=== PATIENT | female | born 1985 | race Caucasian/White ===

== ENCOUNTER 2019-05-15 05:38 | Day surgery (SDC) | payer OTHER ==
[2019-05-09 11:14] VITALS: BMI 36.3
--- NOTE | 2019-05-11 11:30 | HP ---
HISTORY AND PHYSICAL Preoperative history and physical for May 15. CHIEF COMPLAINT: Left ovarian cyst. HPI: This is a pleasant 33-year-old 0 that has known large left ovarian cyst that has been being followed for multiple months. The patient underwent ova 1 testing which was normal in nature in addition. Patient in addition has a 5 cm uterine fibroid. The patient denies pelvic pain at this time. Menstrual cycles are noted to be regular every month with a moderate flow. She denies intermenstrual spotting or dysmenorrhea. She has denied contraceptive need in the past. PAST MEDICAL HISTORY: 1. Significant for fibroid uterus. 2. Ovarian cyst. PAST SURGICAL HISTORY: No surgical history. MEDICATIONS: She is on a supplement called [employer]. ALLERGIES: No known drug allergies. FAMILY MEDICAL HISTORY: Noncontributory. 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 SOCIAL HISTORY: She is a nonsmoker and denies substance abuse. Occasional alcohol use. She is in a monogamous relationship. REVIEW OF SYSTEMS: She denies fevers, chills. She denies nausea, vomiting, diarrhea, constipation. Genitourinary urgency, frequency, dysuria, or urinary incontinence are denied. She denies dyspareunia or vaginal discharge. She denies any breast concerns including lumps, tenderness, swelling, or nipple discharge. PHYSICAL EXAM: VITAL SIGNS: Vital signs noted to be stable. On physical exam, she is a well-nourished, well-developed, alert female in no acute distress. Breathing is noted to be nonlabored. Heart has a regular rate and rhythm. Abdomen is soft, nontender. On genitourinary exam, external genitalia is normal for age. The vaginal mucosa is noted to be pink and well rugated. Her cervix is without lesion or mass. Her uterus is noted to be slightly enlarged and an adnexal mass is noted in the left, smooth in nature. ASSESSMENT: Ovarian cyst, most likely hemorrhagic noted decrease in size with negative ova 1 testing. PLAN: Operative laparoscopy with left salpingo-oophorectomy, possible left cystectomy. Surgery is reviewed with the patient in detail and risks are reviewed including, but not limited to infection, bleeding, damage to bladder, bowel or ureteric injury. Patient states understanding and wishes definitive treatment for this ovarian cyst that has been monitored for multiple months. MMODL / IJN: [id number] /
[~2019-05-15 05:38] MED LIST: DEXAMETHASONE SOD PHOSPHATE 10 MG/ML 1 ML VIAL IV ONE; HYDROmorphone 0.5 MG/0.5 ML SYRINGE IVP PRN; LACTATED RINGERS 1,000 ML IV SCH; LIDOCAINE 1% 20 ML VIAL (10MG/ML) FOR IV START INTRADERMA PRN; MIDAZOLAM 2 MG/2 ML VIAL IV PRN
[2019-05-15] MEDS ORDERED: ACETAMINOPHEN IV (For NPO) 1,000 MG in EMPTY BAG 1 BAG IVPB ONE (06:00)
[2019-05-15] MEDS ORDERED: DEXAMETHASONE SOD PHOSPHATE 10 MG/ML 1 ML VIAL IV ONE (06:40)
[2019-05-15] MEDS ORDERED: BUPIVACAIN-EPI 0.5%-1:200,000 30 ML VIAL SQ ONE ×2 (07:40→09:09)
[2019-05-15] MEDS ORDERED: GLYCOPYRROLATE 0.2 MG/ML 2 ML VIAL ONE (08:30)
[2019-05-15] MEDS ORDERED: ROCURONIUM BROMIDE 10 MG/ML 5 ML VIAL IV ONE (08:30)
[2019-05-15] MEDS ORDERED: fentaNYL (PF) 50 MCG/ML 2 ML AMP ONE (08:30)
[2019-05-15] MEDS ORDERED: NEOSTIGMINE 1 MG/ML 10 ML VIAL ONE (08:30)
[2019-05-15] MEDS ORDERED: MIDAZOLAM 2 MG/2 ML VIAL ONE (08:30)
[2019-05-15] MEDS ORDERED: LIDOCAINE 1% INJ 10MG/ML (20 ML MDV) ONE (08:30)
[2019-05-15] MEDS ORDERED: PROPOFOL 10 MG/ML 20 ML VIAL IV ONE (08:30)
[2019-05-15] MEDS ORDERED: KETOROLAC 30 MG/ML 1 ML VIAL ONE (08:30)
[2019-05-15] MEDS ORDERED: LACTATED RINGERS 1,000 ML IV ONE (08:52)
[2019-05-15 09:33] VITALS: TEMP 97.6
--- NOTE | 2019-05-15 09:35 | P.OP ---
Date of Procedure: 05/15/19 Preoperative Diagnosis: Large ovarian cyst Postoperative Diagnosis: Same plus stage IV endometriosis Procedure(s) Performed: Diagnostic laparoscopy Anesthesia: MAVERICK Surgeon: Jeannine Mathew Estimated Blood Loss (ml): 5 IV fluids (ml): 400 Urine output (ml): 200 Pathology: none sent Condition: stable Disposition: PACU Indications for Procedure: This pleasant 33-year-old 0 has been being monitored for a large ovarian cyst. Patient has had multiple ultrasounds slightly decreasing in size on her last ultrasound. Cyst cyst did appear to be hemorrhagic in nature on multiple ultrasounds. She did undergo ova/1 testing in addition which revealed a benign cystic change. Patient was without insurance and presents today for surgical evaluation as she has gotten coverage. Operative Findings: Stage IV endometriosis significant chocolate cystic contents over the entire omentum normal right appearing ovary, left ovary is enlarged and adherent to the posterior cul-de-sac, large left ovarian cyst is noted to be adherent to the omentum/pelvic sidewall. Filmy adhesions are noted to the left adnexa in addition. Description of Procedure: Patient was seen in the preoperative area and informed consent was obtained. Surgery was reviewed and all questions were answered. Patient was taken back to the operating suite where general anesthesia was obtained without difficulty by the anesthesia department. She was prepped and draped in normal sterile fashion in the dorsal lithotomy position. The latex free catheter was then used to drain the bladder clear yellow urine. A speculum was placed the cervix was visualized and grasped with a single-tooth tenaculum. The acorn uterine manipulator was then advanced into the cervix as a means to manipulate the uterus throughout the procedure. Attention was then turned the patient's abdomen where in the umbilical fold a small skin incision is made. Through this incision the Veress needle is placed. Once the Veress needle was deemed to be in the appropriate position with a drop of CO2 pressure CO2 insufflation was allowed to occur. 2 L of gas were used to obtain pneumoperitoneum. At this time the 5 mm trocar and sleeve is placed through the skin incision and toward the pneumoperitoneum. The above-noted findings are visualized. An additional port site is placed in the right mid abdomen 10 cm lateral and 370 m inferior to the midline port. This is placed under direct visualization. A blunt probe was placed and multiple pictures are taken filmy adhesions are noted throughout the left adnexa. Endometriosis is noted over the omentum and making the left ovary quite adherent to the posterior uterus/pelvic sidewall. At this time given the significant nature of the adhesions/endometriosis decision was made then to take multiple pictures and discussed findings with patient in the office. It is deemed that if further evaluation is noted bleeding may be encountered. At this time all instrument were removed from the patient's abdomen. The skin incisions were closed with 4-0 Vicryl in subcuticular fashion. 1% lidocaine with epinephrine is placed in the skin incisions 6 mL is used, Steri-Strips and sterile dressings are applied. Next All counts are correct 2 patient tolerated procedure well and was taken the recovery room awake in stable condition.
[2019-05-15 10:10] VITALS: RESP 17
[2019-05-15 10:29] VITALS: BP 111/65; PULSE 88
== END 2019-05-15 11:28 | disposition home or self-care (01) ==
LOC: OR 05:38
PROVIDERS: ATTEND Obstetrics & Gynecology Obstetrics
DX: N80.9 Endometriosis, unspecified (principal); N83.202 Unspecified ovarian cyst, left side; D25.9 Leiomyoma of uterus, unspecified; N73.6 Female pelvic peritoneal adhesions (postinfective); Z91.040 Latex allergy status
CPT/HCPCS: 81025; 49320; J2250; J1100; J2710; J0690; J2001; J3010; J1885; J0131; J2704

== ENCOUNTER 2021-11-01 14:31 | Emergency (ER) | payer OTHER ==
[2021-11-01 14:48] VITALS: BP 122/81; PULSE 95; RESP 16; TEMP 98.1
[2021-11-01 16:01] LABS: Amorphous Sediment,Urine Rare /hpf; Appearance,Urine Cloudy (Clear); Bilirubin,Urine Negative (Negative); Blood,Urine Negative (Negative); Color,Urine Light Yellow; Glucose,Urine (UA) Negative (Negative); Ketones,Urine 1+ (Negative); Leukocyte Esterase,Urine Negative (Negative); Mucus,Urine Rare /hpf; Nitrite,Urine Negative (Negative); Protein,Urine Negative (Negative); Specific Gravity,Urine 1.017 (1.001-1.035); Squamous Epithelial Cell,Urine 1 /hpf (0-4); Urobilinogen,Urine <2.0 mg/dL (<2.0); WBC,Urine 2 /hpf (0-5)
--- NOTE | 2021-11-01 17:40 | US ---
EXAMINATION TYPE: US transvaginal DATE OF EXAM: 11/01/2021 COMPARISON: NONE CLINICAL HISTORY: ovarian cysts, pelvic pain. Patient has known left ovarian cyst, fibroid, endometri osis and states her right ovary is not functional, she presents today with clitoral pain and wanted l eft ovarian cyst reassessed. G0 TECHNIQUE: TV. Transvaginal sonographic images Date of LMP: 10/20/2021 EXAM MEASUREMENTS: Uterus: 8.1 x 7.5 x 5.0 cm Endometrial Stripe: 0.6 cm Right Ovary: not seen Left Ovary: 3.7 x 2.6 x 3.2 cm 1. Uterus: Anteverted large right fundal fibroid measuring up to 7cm, unable to discern if this is one singular large fibroid versus multiple, shadowing nature of fibroid made imaging difficult 2. Endometrium: Within normal limits for patient of reproductive age. 3. Right Ovary: Not visualized, possibly due to small size and mass effect from right fundal uterine fibroid. 4. Left Ovary: 3.1cm simple appearing cyst, patient states is was up to 11cm previously Spectral, color and waveform doppler imaging shows good arterial and venous flow within the left ov brice; there is no evidence for left ovarian torsion. 5. Bilateral Adnexa: Within normal limits, no free fluid collections within the adnexa. 6. Posterior cul-de-sac: Normal appearance. IMPRESSION: 1. Left ovarian cyst which is simple in appearance and measures 3.1 cm in size. 2. Fibroid uterus. 3. Non-visualization of the right ovary.
--- NOTE | 2021-11-01 18:23 | ED ---
Female Urogenital HPI - General Chief complaint: Urogenital Stated complaint: vaginal pain Time Seen by Provider: 11/01/21 15:32 Source: patient Mode of arrival: ambulatory Limitations: no limitations - History of Present Illness Initial comments: 36-year-old female presents emergency department reporting clitoral pain. She does have a history of ovarian cysts and endometriosis. She had a laparoscopy done 2 years ago. A few months after this procedure she had an episode of clitoral pain. She went to an urgent care for it and was placed on nystatin cream. She then followed up with her [facility] who put her on steroid cream. She began doing yoga and drinking apple cider vinegar. States that the pain disappeared after that. As of last week the patient has had intermittent episodes of this pain. States that she has not had a good diet or done any exercise in the past 2 months due to a job change. Is concerned that this may be the reason for her worsening symptoms. She denies dysuria, hematuria or difficulty voiding. No change in her bowel habits to include diarrhea, constipation, melenic stools or hematochezia. Reports to normal menstrual cycles. No concern for . No report of vaginal trauma. No discharge. No fevers. No other alleviating, precipitating or modifying factors - Related Data Previous Rx's Medication Instructions Recorded Hydrocortisone Cream 1 applic TOPICAL TID #28 gm 11/01/21 [Hydrocortisone 1% Cream] valACYclovir HCL [Valacyclovir] 1,000 mg PO DAILY #5 tab 11/01/21 Allergies Allergy/AdvReac Type Severity Reaction Status Date / Time Latex, Natural Rubber Allergy Rash/Hives Verified 11/01/21 17:43 Review of Systems ROS Statement: Those systems with pertinent positive or pertinent negative responses have been documented in the HPI. ROS Other: All systems not noted in ROS Statement are negative. Past Medical History Additional Past Medical History / Comment(s): ovarian cyst, endometriosis History of Any Multi-Drug Resistant Organisms: None Reported Additional Past Surgical History / Comment(s): laproscopy Past Psychological History: No Psychological Hx Reported Smoking Status: Never smoker Past Alcohol Use History: Rare Past Drug Use History: None Reported General Exam Limitations: no limitations General appearance: alert, in no apparent distress Head exam: Present: atraumatic, normocephalic, normal inspection Eye exam: Present: normal appearance, PERRL, EOMI. Absent: scleral icterus, conjunctival injection, periorbital swelling ENT exam: Present: normal exam, mucous membranes moist Neck exam: Present: normal inspection. Absent: tenderness, meningismus, lymphadenopathy Respiratory exam: Present: normal lung sounds bilaterally. Absent: respiratory distress, wheezes, rales, rhonchi, stridor Cardiovascular Exam: Present: regular rate, normal rhythm, normal heart sounds. Absent: systolic murmur, diastolic murmur, rubs, gallop, clicks GI/Abdominal exam: Present: soft, tenderness (left lower quadrant), normal bowel sounds. Absent: distended, guarding, rebound, rigid External exam: Present: lesions (clustered vesicular lesions right labia - 8 oclock position). Absent: swelling Extremities exam: Present: normal inspection, full ROM, normal capillary refill. Absent: tenderness, pedal edema, joint swelling, calf tenderness Back exam: Present: normal inspection Neurological exam: Present: alert, oriented X3, CN II-XII intact Psychiatric exam: Present: normal affect, normal mood Skin exam: Present: warm, dry, intact, normal color. Absent: rash Course Vital Signs 11/01/21 14:44 Temperature 98.1 F Pulse Rate 95 Respiratory 16 Rate Blood Pressure 122/81 O2 Sat by Pulse 99 Oximetry Medical Decision Making - Medical Decision Making Upon arrival patient was placed into room 14. A thorough history and physical exam was performed. Patient does provide a urine sample. Ultrasound is performed due to the patient's extensive [facility] history. Ultrasound demonstrates a 7 cm fibroid. Patient also has a left 3.1 simple appearing cyst. Results discussed the patient. Did discuss the multiple differential and treatment options for clitoral pain. Patient also has a notable bump to the right labia consistent with herpes. Patient does have a history of herpes and had one outbreak 10 years ago. She will be placed on valacyclovir for suspected herpes. Also recommended hydrocortisone cream for her clitoral pain. She is to follow-up with [facility] for further evaluation and treatment. Return for any new or worsening symptoms. Patient was in agreement with the plan and was discharged home in stable condition - Lab Data Lab Results 11/01/21 11/01/21 Range/Units 15:45 15:45 Urine Color Light Yellow Urine Appearance Cloudy H (Clear) Urine pH 8.0 (5.0-8.0) Ur Specific [place] 1.017 (1.001-1.035) Urine Protein Negative (Negative) Urine Glucose (UA) Negative (Negative) Urine Ketones 1+ H (Negative) Urine Blood Negative (Negative) Urine Nitrite Negative (Negative) Urine Bilirubin Negative (Negative) Urine Urobilinogen <2.0 (<2.0) mg/dL Ur Leukocyte Esterase Negative (Negative) Urine WBC 2 (0-5) /hpf Ur Squamous Epith Cells 1 (0-4) /hpf Amorphous Sediment Rare H (None) /hpf Urine Mucus Rare H (None) /hpf Urine HCG, Qual Not Detected (Not Detectd) Disposition Clinical Impression: Clitoral irritation Disposition: HOME SELF-CARE Condition: Stable Instructions (If sedation given, give patient instructions): Genital Herpes Simplex (ED) Additional Instructions: Please take the medications as directed. Follow up with the [facility]. Do not use any extra creams or perfumes down there. Shower with Dial soap. Return to the emergency room for any new or worsening symptoms Prescriptions: Hydrocortisone Cream [Hydrocortisone 1% Cream] 1 applic TOPICAL TID #28 gm valACYclovir HCL [Valacyclovir] 1,000 mg PO DAILY #5 tab Is patient prescribed a controlled substance at d/c from ED?: No Referrals: None,Stated [Primary Care Provider] - 1-2 days Jeannine Mathew DO [Doctor of Osteopathic Medicine] - 1-2 days Time of Disposition: 18:29
== END 2021-11-01 18:38 | disposition home or self-care (01) ==
LOC: EC 14:31
DX: Z91.040 Latex allergy status (principal); K31.89 Other diseases of stomach and duodenum
CPT/HCPCS: 76830; 81001; 81025; 87529; 93976

== ENCOUNTER 2021-11-24 11:07 | Emergency (ER) | payer OTHER ==
[2021-11-24 11:51] VITALS: TEMP 98
[2021-11-24 12:44] LABS: Appearance,Urine Clear (Clear); Bilirubin,Urine Negative (Negative); Blood,Urine Negative (Negative); Color,Urine Colorless; Glucose,Urine (UA) Negative (Negative); Ketones,Urine Negative (Negative); Leukocyte Esterase,Urine Negative (Negative); Nitrite,Urine Negative (Negative); Protein,Urine Negative (Negative); Specific Gravity,Urine 1.007 (1.001-1.035); Urobilinogen,Urine <2.0 mg/dL (<2.0)
--- NOTE | 2021-11-24 13:35 | ED ---
General Adult HPI - General Chief complaint: Urogenital Stated complaint: female Time Seen by Provider: 11/24/21 11:21 Source: patient Mode of arrival: ambulatory Limitations: no limitations - History of Present Illness Initial comments: Dictation was produced using [employer] dictation software. please excuse any grammatical, word or spelling errors. Chief Complaint: Patient is 36-year-old female chief complaint of alleged scratch on her clitoris History of Present Illness: A 36-year-old female she has past medical history of ovarian cysts and endometriosis. Patient seen here month ago or collateral pain. She was seen in the ER and prescribed valacyclovir for concerns of HSV-1 outbreak. Patient took the medications and her symptoms improved. Shortly after she followed up with her field service analyst Dr. Mathew who felt that patient's symptoms were secondary to nerve pain. Patient was provided with a two-month prescription for doxycycline here and physical therapy. Patient states that her pain returned over the last couple days. Her significant other took a look and felt like he saw a scratch under the clitoral wolff. The ROS documented in this emergency department record has been reviewed and confirmed by me. Those systems with pertinent positive or negative responses have been documented in the HPI. All other systems are other negative and/or noncontributory. PHYSICAL EXAM: General Impression: Alert and oriented x3, not in acute distress HEENT: Normocephalic atraumatic, extra-ocular movements intact, pupils equal and reactive to light bilaterally, mucous membranes moist. Cardiovascular: Heart regular rate and rhythm Chest: Able to complete full sentences, no retractions, no tachypnea Musculoskeletal: Pulses present and equal in all extremities, no peripheral edema Motor: no focal deficits noted Neurological: CN II-XII grossly intact, no focal motor or sensory deficits noted Skin: Intact with no visualized rashes Psych: Normal affect and mood ED course: 36-year-old female presents to the emergency department for chief complaint of clitoral abnormality and clitoral pain. Vital signs upon arrival are within acceptable limits. Patient is well-appearing at the bedside. Genitalia exam was performed by nurse practitioner Ilana Ruffin because patient did not fill comfortable with a male doing the exam. Genitalia exam showed excoriations around the area of the clitoris and and odorous discharge concerning for bacterial vaginosis. Patient told that is important for her to follow-up with her field service analyst. Patient given Flagyl. Patient denies . She is not sexually active - Related Data Previous Rx's Medication Instructions Recorded Hydrocortisone Cream 1 applic TOPICAL TID #28 gm 11/01/21 [Hydrocortisone 1% Cream] valACYclovir HCL [Valacyclovir] 1,000 mg PO DAILY #5 tab 11/01/21 metroNIDAZOLE [Flagyl] 500 mg PO BID 7 Days #14 tab 11/24/21 Allergies Allergy/AdvReac Type Severity Reaction Status Date / Time Latex, Natural Rubber Allergy Rash/Hives Verified 11/24/21 11:47 Review of Systems ROS Statement: Those systems with pertinent positive or pertinent negative responses have been documented in the HPI. ROS Other: All systems not noted in ROS Statement are negative. Past Medical History Additional Past Medical History / Comment(s): ovarian cyst, endometriosis History of Any Multi-Drug Resistant Organisms: None Reported Additional Past Surgical History / Comment(s): laproscopy Past Psychological History: No Psychological Hx Reported Smoking Status: Never smoker Past Alcohol Use History: Rare Past Drug Use History: None Reported General Exam Limitations: no limitations Course Vital Signs 11/24/21 11:48 Temperature 98 F Pulse Rate 103 H Respiratory 18 Rate Blood Pressure 128/80 O2 Sat by Pulse 99 Oximetry Medical Decision Making - Lab Data Lab Results 11/24/21 11/24/21 Range/Units 12:19 12:19 Urine Color Colorless Urine Appearance Clear (Clear) Urine pH 5.0 (5.0-8.0) Ur Specific [place] 1.007 (1.001-1.035) Urine Protein Negative (Negative) Urine Glucose (UA) Negative (Negative) Urine Ketones Negative (Negative) Urine Blood Negative (Negative) Urine Nitrite Negative (Negative) Urine Bilirubin Negative (Negative) Urine Urobilinogen <2.0 (<2.0) mg/dL Ur Leukocyte Esterase Negative (Negative) Urine HCG, Qual Not Detected (Not Detectd) Disposition Clinical Impression: Clitoral irritation Disposition: HOME SELF-CARE Condition: Good Instructions (If sedation given, give patient instructions): Bacterial Vaginosis (ED) Prescriptions: metroNIDAZOLE [Flagyl] 500 mg PO BID 7 Days #14 tab Is patient prescribed a controlled substance at d/c from ED?: No Referrals: Jeannine Mathew, [Doctor of Osteopathic Medicine] - 1-2 days
[2021-11-24 14:26] VITALS: BP 93/69; PULSE 83; RESP 16
== END 2021-11-24 14:28 | disposition home or self-care (01) ==
LOC: EC 11:07
DX: N72 Inflammatory disease of cervix uteri (principal); Z91.040 Latex allergy status
CPT/HCPCS: 81003; 81025; 99283

== ENCOUNTER 2022-01-10 10:23 | Emergency (ER) | payer OTHER ==
[2022-01-10 10:28] VITALS: BP 113/59; PULSE 94; RESP 16; TEMP 98.3
--- NOTE | 2022-01-10 10:55 | ED ---
General Adult HPI - General Chief complaint: ENT Stated complaint: sore throat Time Seen by Provider: 01/10/22 10:35 Source: patient, RN notes reviewed, old records reviewed Mode of arrival: ambulatory Limitations: no limitations - History of Present Illness Initial comments: This is a 36-year-old female presents emergency Department complaining of a sore throat on the left side of her throat. Patient states she went to [facility] they started her on antibiotic on and she comes in for second opinion because she states that it's not getting any better and the initial rapid strep came back negative. Patient denies any fever chills. Patient states it does hurt to swallow. Patient states she's been taking Motrin for pain. Patient denies any other symptoms at this time. - Related Data Previous Rx's Medication Instructions Recorded Hydrocortisone Cream 1 applic TOPICAL TID #28 gm 11/01/21 [Hydrocortisone 1% Cream] valACYclovir HCL [Valacyclovir] 1,000 mg PO DAILY #5 tab 11/01/21 metroNIDAZOLE [Flagyl] 500 mg PO BID 7 Days #14 tab 11/24/21 predniSONE [Deltasone] 40 mg PO DAILY #8 tab 01/10/22 Allergies Allergy/AdvReac Type Severity Reaction Status Date / Time Latex, Natural Rubber Allergy Rash/Hives Verified 11/24/21 11:47 Review of Systems ROS Statement: Those systems with pertinent positive or pertinent negative responses have been documented in the HPI. ROS Other: All systems not noted in ROS Statement are negative. Past Medical History Additional Past Medical History / Comment(s): ovarian cyst, endometriosis History of Any Multi-Drug Resistant Organisms: None Reported Additional Past Surgical History / Comment(s): laproscopy Past Psychological History: No Psychological Hx Reported Smoking Status: Never smoker Past Alcohol Use History: Rare Past Drug Use History: None Reported General Exam - General Exam Comments Initial Comments: GENERAL Patient is well-developed and well-nourished. Patient is in mild distress. EYES Patient's pupils are equal and round. Extraocular motion is intact ENT Patient's tonsils on the right is red and there is some exudate on the tonsil. Patient does not have any lymphadenopathy. SKIN Unremarkable NEURO The patient is alert and oriented 3 PYSCH Patient has normal interpersonal interactions. MUSCULOSKELETAL All 4 extremities and full range of motion Limitations: no limitations Course Vital Signs 01/10/22 10:27 Temperature 98.3 F Pulse Rate 94 Respiratory 16 Rate Blood Pressure 113/59 O2 Sat by Pulse 98 Oximetry Disposition Clinical Impression: Pharyngitis Disposition: HOME SELF-CARE Condition: Good Instructions (If sedation given, give patient instructions): Pharyngitis (ED) Additional Instructions: Patient should continue amoxicillin as prescribed. Patient should take prednisone for the next 4 days. And continue Tylenol when necessary for pain. Patient is to hold the Motrin when she is taking prednisone Prescriptions: predniSONE [Deltasone] 40 mg PO DAILY #8 tab Is patient prescribed a controlled substance at d/c from ED?: No Referrals: Livan Matos MD [Primary Care Provider] - 1-2 days Time of Disposition: 10:55
== END 2022-01-10 11:30 | disposition home or self-care (01) ==
LOC: EC 10:23
DX: J02.9 Acute pharyngitis, unspecified (principal); Z20.822 Contact with and (suspected) exposure to COVID-19; Z91.040 Latex allergy status
CPT/HCPCS: 87635

== ENCOUNTER 2022-03-24 17:33 | Emergency (ER) | payer OTHER ==
[2022-03-24 17:48] VITALS: RESP 18
--- NOTE | 2022-03-24 17:52 | ED ---
General Adult HPI <Ilana Ruffin - Last Filed: 03/24/22 17:44> <Saritha Cunningham - Last Filed: 03/27/22 17:14> - General Stated complaint: female , trouble walking from pain - History of Present Illness Initial comments: Patient is a 36-year-old male presented to the emergency room with complaints of vaginal discharge with odor and and pain in the clitoris. Her partner does note some excoriation in the perineal area; the symptoms started today. She reports that she had similar symptoms in November of last year when she was diagnosed with bacterial vaginosis and she responded well to treatment. She denies any other significant past medical history. She denies any fevers chills, pelvic pain, dysuria or hematuria. Her last menstrual cycle was in February. She denies any concerns for STDs. (Ilana Ruffin) 36-year-old female presents to the emergency Department with complaints of malodorous vaginal discharge she attributes to bacterial vaginosis. States she has a history of BV and reports her current symptoms are similar. States she has thin yellowish prakash discharge. Also reports mild perineal irritation. Has a monogamous relationship and is not concerned for STDs. Denies fever, chills, headache, chest pain, shortness of breath, abdominal pain, pelvic pain, dysuria, or hematuria. Denies any chance of . (Saritha Cunningham) - Related Data Previous Rx's Medication Instructions Recorded Hydrocortisone Cream 1 applic TOPICAL TID #28 gm 11/01/21 [Hydrocortisone 1% Cream] valACYclovir HCL [Valacyclovir] 1,000 mg PO DAILY #5 tab 11/01/21 metroNIDAZOLE [Flagyl] 500 mg PO BID 7 Days #14 tab 11/24/21 predniSONE [Deltasone] 40 mg PO DAILY #8 tab 01/10/22 metroNIDAZOLE [Flagyl] 500 mg PO BID 7 Days #14 tab 03/24/22 Allergies Allergy/AdvReac Type Severity Reaction Status Date / Time Latex, Natural Rubber Allergy Rash/Hives Verified 03/24/22 17:48 Review of Systems ROS Other: All systems not noted in ROS Statement are negative. <Ilana Ruffin - Last Filed: 03/24/22 17:44> ROS Other: All systems not noted in ROS Statement are negative. <Saritha Cunningham - Last Filed: 03/27/22 17:14> ROS Statement: Those systems with pertinent positive or pertinent negative responses have been documented in the HPI. Past Medical History Additional Past Medical History / Comment(s): ovarian cyst, endometriosis History of Any Multi-Drug Resistant Organisms: None Reported Additional Past Surgical History / Comment(s): laproscopy Past Psychological History: No Psychological Hx Reported Smoking Status: Never smoker Past Alcohol Use History: Rare Past Drug Use History: None Reported <Ilana Ruffin - Last Filed: 03/24/22 17:44> General Exam Limitations: no limitations General appearance: alert, in no apparent distress Respiratory exam: Present: normal lung sounds bilaterally. Absent: respiratory distress, wheezes, rales, rhonchi, stridor Cardiovascular Exam: Present: regular rate, normal rhythm, normal heart sounds. Absent: systolic murmur, diastolic murmur, rubs, gallop, clicks GI/Abdominal exam: Present: soft, normal bowel sounds. Absent: distended, tenderness, guarding, rebound, rigid External exam: Present: normal external exam, other (No erythema or irritation in the genital or perineal area). Absent: erythema, lesions Speculum exam: Present: cervical discharge (Thin white-alfred cervical discharge. Cervix is non-erythematous; no lesions.). Absent: vaginal bleeding Back exam: Absent: CVA tenderness (R), CVA tenderness (L) Neurological exam: Present: alert, oriented X3 Psychiatric exam: Present: normal affect, normal mood <Saritha Cunningham - Last Filed: 03/27/22 17:14> Course Vital Signs 03/24/22 03/24/22 17:44 20:35 Temperature 98.4 F 99.6 F Pulse Rate 93 96 Respiratory 18 18 Rate Blood Pressure 123/86 120/79 O2 Sat by Pulse 99 100 Oximetry Medical Decision Making <Saritha Cunningham - Last Filed: 03/27/22 17:14> - Medical Decision Making This is a 36-year-old female who presents to the emergency Department with complaints of vaginal discharge she suspects to be bacterial vaginosis. Given her symptoms and previous history, she will be treated with Flagyl. First dose given in the emergency department. Speculum exam reveals a thin whitish prakash cervical mucus without compelling evidence for infectious process. Cultures were collected. We discussed safe sex practices. Patient will be discharged home to follow up with her PCP for a recheck as needed. Return parameters discussed in detail. Patient verbalizes understanding and agrees with this plan. Attending: Sharon Was pt. sent in by a medical professional or institution? @ -No Did you speak to anyone other than the patient for history? @ -No Did you review nursing and triage notes? @ -Yes, agree Were old charts reviewed? @ -No Differential Diagnosis? @ -Gonorrhea, chlamydia, Trichomonas, PID, UTI, this is not meant to be an exhaustive list EKG interpreted by me (3pts min.)? @ -Not applicable X-rays interpreted by me (1pt min.)? @ -Not applicable CT interpreted by me (1pt min.)? @ -Not applicable U/S interpreted by me (1pt. min.)? @ -Not applicable What testing was considered but not performed? (CT, X-rays, U/S, labs)? Why? @ -Not applicable What meds were considered but not given? Why? @ -None Did you discuss the management of the patient with other professionals? @ -None Did you reconcile home meds? @ -No Was smoking cessation discussed for >3mins.? @ -No Was critical care preformed (if so, how long)? @ -No Were there social determinants of health that impacted care today? How? (Homelessness, low income, unemployed, alcoholism, drug addiction, transportation, low edu. Level, literacy, decrease access to med. care, skilled nursing, rehab)? @ -No Was there de-escalation of care discussed even if they declined? (Discuss DNR or withdrawal of care, Hospice)? @ -No What co-morbidities impacted this encounter? (DM, HTN, Smoking, COPD, CAD, Cancer, CVA, Hep., AIDS, mental health diagnosis, sleep apnea, morbid obesity)? @No Was patient admitted / discharged? @ -Discharged Undiagnosed new problem with uncertain prognosis? @ -None Drug Therapy requiring intensive monitoring for toxicity (Heparin, Nitro, Insulin, Cardizem)? @ -None Were any procedures done? @ -None Diagnosis/symptom? @ -Bacterial vaginosis Acute, or Chronic, or Acute on Chronic? @ -Acute Uncomplicated (without systemic symptoms) or Complicated (systemic symptoms)? @ -Uncomplicated Side effects of treatment? @ -None Exacerbation, Progression, or Severe Exacerbation] @ -No Poses a threat to life or bodily function? @ -No (Saritha Cunningham) - Lab Data Lab Results 03/24/22 03/24/22 03/24/22 Range/Units 17:47 17:47 20:39 Urine Color Colorless Urine Appearance Clear (Clear) Urine pH 5.5 (5.0-8.0) Ur Specific [place] 1.005 (1.001-1.035) Urine Protein Negative (Negative) Urine Glucose (UA) Negative (Negative) Urine Ketones Negative (Negative) Urine Blood Negative (Negative) Urine Nitrite Negative (Negative) Urine Bilirubin Negative (Negative) Urine Urobilinogen <2.0 (<2.0) mg/dL Ur Leukocyte Esterase Negative (Negative) Urine HCG, Qual Not Detected (Not Detectd) Chlamydia Source Chlamydia DNA (PCR) (Neg,Equiv) N. gonorrhoeae Source N.gonorrhoeae DNA Probe (Neg,Equiv) Trichomonas Ag (Rapid) Negative (Negative) 03/24/22 Range/Units 20:39 Urine Color Urine Appearance (Clear) Urine pH (5.0-8.0) Ur Specific [place] (1.001-1.035) Urine Protein (Negative) Urine Glucose (UA) (Negative) Urine Ketones (Negative) Urine Blood (Negative) Urine Nitrite (Negative) Urine Bilirubin (Negative) Urine Urobilinogen (<2.0) mg/dL Ur Leukocyte Esterase (Negative) Urine HCG, Qual (Not Detectd) Chlamydia Source Endocervical Chlamydia DNA (PCR) Negative (Neg,Equiv) N. gonorrhoeae Source Endocervical N.gonorrhoeae DNA Probe Negative (Neg,Equiv) Trichomonas Ag (Rapid) (Negative) Disposition <Ilana Ruffin - Last Filed: 03/24/22 17:44> Is patient prescribed a controlled substance at d/c from ED?: No Time of Disposition: 21:36 <Saritha Cunningham - Last Filed: 03/27/22 17:14> Clinical Impression: Bacterial vaginosis Disposition: HOME SELF-CARE Condition: Stable Instructions (If sedation given, give patient instructions): Bacterial Vaginosis (ED) Additional Instructions: Take medication as prescribed. Avoid alcohol as discussed. Wear cotton underwear and loose fitting pants. Change out of wet clothing immediately. Avoid fragrant body washes. Follow-up with PCP for a recheck as needed. Return to the emergency department with any new, worsening, or concerning symptoms. Prescriptions: metroNIDAZOLE [Flagyl] 500 mg PO BID 7 Days #14 tab Referrals: Livan Matos MD [Primary Care Provider] - 1-2 days
[2022-03-24 17:59] LABS: Appearance,Urine Clear (Clear); Bilirubin,Urine Negative (Negative); Blood,Urine Negative (Negative); Color,Urine Colorless; Glucose,Urine (UA) Negative (Negative); Ketones,Urine Negative (Negative); Leukocyte Esterase,Urine Negative (Negative); Nitrite,Urine Negative (Negative); PH, Urine 5.5 (5.0-8.0); Protein,Urine Negative (Negative); Specific Gravity,Urine 1.005 (1.001-1.035); Urobilinogen,Urine <2.0 mg/dL (<2.0)
[2022-03-24 20:42] VITALS: BP 120/79; PULSE 96; TEMP 99.6
[2022-03-24] MEDS ORDERED: metroNIDAZOLE 500 MG TAB PO STA (21:30)
[2022-03-25 13:33] LABS: C. trachomatis,PCR Negative (Neg,Equiv); Chlamydia trachomatis Source Endocervical; N. gonorrhoeae,PCR Negative (Neg,Equiv); Neisseria Source Endocervical
== END 2022-03-24 21:54 | disposition home or self-care (01) ==
LOC: EC 17:33
DX: N76.0 Acute vaginitis (principal); Z91.040 Latex allergy status
CPT/HCPCS: 81003; 81025; 87491; 87591; 87808; 99283

== ENCOUNTER 2023-09-10 17:00 | Emergency (ER) | payer OTHER ==
[2023-09-10 17:08] VITALS: TEMP 98
--- NOTE | 2023-09-10 18:04 | ED ---
Female Urogenital HPI - General Source: patient, RN notes reviewed Mode of arrival: ambulatory Limitations: no limitations <Coretta East - Last Filed: 09/10/23 18:01> <Magalis Self - Last Filed: 09/15/23 21:21> - General Chief complaint: Vaginal Bleeding Stated complaint: vaginal pain, back pain Time Seen by Provider: 09/10/23 18:01 - History of Present Illness Initial comments: Quick [id number] female with history of hysterectomy 3 months ago presenting with pressure in the vagina. She believes she "overdid it" over the past week with physical activity at work and thinks she may have a uterine prolapse. She describes a bulging sensation in the vagina as well as pressure in her low back. (Coretta East) 38-year-old female presents to the emergency department for evaluation of vaginal pressure and discomfort. She states that this started today. She notes that has been constant. Patient states that she recently had a hysterectomy. She is concerned that she may have some sort of prolapse. She follows with Dr. Granados for gynecology. She denies any significant abdominal pain, reports normal bowel movements. Denies nausea, vomiting, fever. Denies any vaginal discharge, vaginal bleeding. (Magalis Self) - Related Data Previous Rx's Medication Instructions Recorded Hydrocortisone Cream 1 applic TOPICAL TID #28 gm 11/01/21 [Hydrocortisone 1% Cream] valACYclovir HCL [Valacyclovir] 1,000 mg PO DAILY #5 tab 11/01/21 metroNIDAZOLE [Flagyl] 500 mg PO BID 7 Days #14 tab 11/24/21 predniSONE [Deltasone] 40 mg PO DAILY #8 tab 01/10/22 metroNIDAZOLE [Flagyl] 500 mg PO BID 7 Days #14 tab 03/24/22 Fluconazole [Diflucan] 200 mg PO ONCE #1 tablet 09/10/23 Allergies Allergy/AdvReac Type Severity Reaction Status Date / Time amoxicillin Allergy Unknown Verified 09/10/23 17:08 Latex, Natural Rubber Allergy Rash/Hives Verified 09/10/23 17:07 Review of Systems ROS Other: All systems not noted in ROS Statement are negative. <Coretta East - Last Filed: 09/10/23 18:01> ROS Other: All systems not noted in ROS Statement are negative. <Magalis Self - Last Filed: 09/15/23 21:21> ROS Statement: Those systems with pertinent positive or pertinent negative responses have been documented in the HPI. Past Medical History Additional Past Medical History / Comment(s): ovarian cyst, endometriosis History of Any Multi-Drug Resistant Organisms: None Reported Additional Past Surgical History / Comment(s): laproscopy Past Psychological History: No Psychological Hx Reported Smoking Status: Never smoker Past Alcohol Use History: Rare Past Drug Use History: None Reported <Coretta East - Last Filed: 09/10/23 18:01> General Exam Limitations: no limitations <CruzitoCoretta - Last Filed: 09/10/23 18:01> Limitations: no limitations General appearance: alert, in no apparent distress Head exam: Present: atraumatic, normocephalic, normal inspection Eye exam: Present: normal appearance, PERRL, EOMI. Absent: scleral icterus, conjunctival injection, periorbital swelling ENT exam: Present: normal exam, mucous membranes moist Respiratory exam: Present: normal lung sounds bilaterally. Absent: respiratory distress, wheezes, rales, rhonchi, stridor Cardiovascular Exam: Present: regular rate, normal rhythm, normal heart sounds. Absent: systolic murmur, diastolic murmur, rubs, gallop, clicks GI/Abdominal exam: Present: soft, normal bowel sounds. Absent: distended, t enderness, guarding, rebound, rigid External exam: Present: normal external exam Speculum exam: Present: normal speculum exam By manual exam: Present: normal by manual exam Extremities exam: Present: normal inspection, full ROM, normal capillary refill. Absent: tenderness, pedal edema, joint swelling, calf tenderness Back exam: Present: normal inspection Neurological exam: Present: alert, oriented X3 Psychiatric exam: Present: normal affect, normal mood Skin exam: Present: warm, dry, intact, normal color. Absent: rash <Magalis Self - Last Filed: 09/15/23 21:21> - General Exam Comments Initial Comments: Visual Physical Exam Vital signs reviewed General: Well-appearing, nontoxic, no acute distress. Head: Normocephalic, atraumatic Eyes: PERRLA, EOMI ENT: Airway patent Chest: Nonlabored breathing Skin: No visual rash, normal skin tone Neuro: Alert and oriented 3 Musculoskeletal: No gross abnormalities (Coretta East) Course Vital Signs 09/10/23 09/10/23 17:06 20:17 Temperature 98 F 98 F Pulse Rate 83 80 Respiratory 20 17 Rate Blood Pressure 124/75 109/71 O2 Sat by Pulse 99 96 Oximetry Medical Decision Making <CruzitoCoretta - Last Filed: 09/10/23 18:01> <Magalis Self - Last Filed: 09/15/23 21:21> - Medical Decision Making I completed the quick note portion of this chart signed Coretta East PA-C (Coretta East) Was pt. sent in by a medical professional or institution (, GUS, DIPLOMATIC INTERPRETER, urgent care, hospital, or long-term...) When possible be specific @ -No Did you speak to anyone other than the patient for history (EMS, parent, family, police, friend...)? What history was obtained from this source @ -No Did you review nursing and triage notes (agree or disagree)? Why? @ -I reviewed and agree with nursing and triage notes Were old charts reviewed (outside hosp., previous admission, EMS record, old EKG, old radiological studies, urgent care reports/EKG's, long-term records)? Report findings @ -No old charts were reviewed Differential Diagnosis (chest pain, altered mental status, abdominal pain women, abdominal pain men, vaginal bleeding, weakness, fever, dyspnea, syncope, headache, dizziness, GI bleed, back pain, seizure, CVA, palpatations, mental health, musculoskeletal)? @ -Cystocele, UTI, vaginal yeast infection, bacterial vaginosis, this list is not all inclusive EKG interpreted by me (3pts min.). @ -None X-rays interpreted by me (1pt min.). @ -None done CT interpreted by me (1pt min.). @ -None done U/S interpreted by me (1pt. min.). @ -None done What testing was considered but not performed or refused? (CT, X-rays, U/S, labs)? Why? @ -None What meds were considered but not given or refused? Why? @ -None Did you discuss the management of the patient with other professionals (suzette milton i.e. , PA, DIPLOMATIC INTERPRETER, lab, RT, psych nurse, perinatal social worker, supervisor cutting and boning, teacher, special officer automat, outsole caser)? Give summary @ -No Was smoking cessation discussed for >3mins.? @ -No Was critical care preformed (if so, how long)? @ -No Were there social determinants of health that impacted care today? How? (Homelessness, low income, unemployed, alcoholism, drug addiction, transportation, low edu. Level, literacy, decrease access to med. care, [facility], rehab)? @ -No Was there de-escalation of care discussed even if they declined (Discuss DNR or withdrawal of care, Hospice)? DNR status @ -No What co-morbidities impacted this encounter? (DM, HTN, Smoking, COPD, CAD, Cancer, CVA, ARF, Chemo, Hep., AIDS, mental health diagnosis, sleep apnea, morbid obesity)? @ -None Was patient admitted / discharged? Hospital course, mention meds given and route, prescriptions, significant lab abnormalities, going to OR and other pertinent info. @ -Discharged. Patient presented to the emergency department for evaluation of vaginal pressure x 1 day. Pelvic exam performed with no obvious prolapse. A genital culture swab was obtained along with a urinalysis. UA shows no evidence of infectious process. Discussed with patient that she should follow-up with her CUSTOMER EXPERIENCE ANALYST. She is understanding and agreeable with this plan. Patient stable at time of discharge. Case discussed with Dr. Parrish. Undiagnosed new problem with uncertain prognosis? @ -No Drug Therapy requiring intensive monitoring for toxicity (Heparin, Nitro, Insulin, Cardizem)? @ -No Were any procedures done? @ -No Diagnosis/symptom? @ -Default Acute, or Chronic, or Acute on Chronic? @ -Acute Uncomplicated (without systemic symptoms) or Complicated (systemic symptoms)? @ -Uncomplicated Side effects of treatment? @ -No Exacerbation, Progression, or Severe Exacerbation? @ -No Poses a threat to life or bodily function? How? (Chest pain, [place], [place], pneumonia, PE, COPD, DKA, ARF, appy, cholecystitis, CVA, Diverticulitis, Homicidal, Suicidal, threat to staff... and all critical care pts) @ -No (Magalis Self) - Lab Data Lab Results 09/10/23 Range/Units 20:16 Urine Color Light Yellow Urine Appearance Clear (Clear) Urine pH 5.0 (5.0-8.0) Ur Specific [place] 1.027 (1.001-1.035) Urine Protein Negative (Negative) Urine Glucose (UA) Negative (Negative) Urine Ketones 2+ H (Negative) Urine Blood Negative (Negative) Urine Nitrite Negative (Negative) Urine Bilirubin Negative (Negative) Urine Urobilinogen <2.0 (<2.0) mg/dL Ur Leukocyte Esterase Negative (Negative) Disposition <Coretta East - Last Filed: 09/10/23 18:01> Is patient prescribed a controlled substance at d/c from ED?: No <Magalis Self - Last Filed: 09/15/23 21:21> Clinical Impression: Vaginal yeast infection Disposition: HOME SELF-CARE Condition: Stable Instructions (If sedation given, give patient instructions): Yeast Infection (ED) Additional Instructions: Please follow up with your CUSTOMER EXPERIENCE ANALYST. Return to the emergency department for new or worsening symptoms. Prescriptions: Fluconazole [Diflucan] 200 mg PO ONCE #1 tablet Referrals: Cristofer Griffiths DO [Primary Care Provider] - 1-2 days
[2023-09-10] MEDS: FLUCONAZOLE 100 MG TAB PO ONE (20:04)
[2023-09-10 20:20] VITALS: BP 109/71; PULSE 80; RESP 17
[2023-09-10 20:26] LABS: Appearance,Urine Clear (Clear); Bilirubin,Urine Negative (Negative); Blood,Urine Negative (Negative); Color,Urine Light Yellow; Glucose,Urine (UA) Negative (Negative); Ketones,Urine 2+ (Negative); Leukocyte Esterase,Urine Negative (Negative); Nitrite,Urine Negative (Negative); Protein,Urine Negative (Negative); Specific Gravity,Urine 1.027 (1.001-1.035); Urobilinogen,Urine <2.0 mg/dL (<2.0)
== END 2023-09-10 20:21 | disposition home or self-care (01) ==
LOC: EC 17:00
DX: B37.31 Acute candidiasis of vulva and vagina (principal); Z88.0 Allergy status to penicillin; Z91.040 Latex allergy status
CPT/HCPCS: 81003; 87070; 99284

== ENCOUNTER 2024-01-09 02:27 | Emergency (ER) | payer OTHER ==
[2024-01-09 02:34] VITALS: BP 113/80; PULSE 97; RESP 18; TEMP 97.9
--- NOTE | 2024-01-09 02:59 | ED ---
Female Urogenital HPI - General Source: patient Mode of arrival: ambulatory Limitations: no limitations <Robbie Michaud - Last Filed: 01/09/24 02:58> <Nitin Doyle - Last Filed: 01/09/24 05:18> - General Chief complaint: Urogenital Stated complaint: urogential Time Seen by Provider: 01/09/24 02:58 - History of Present Illness Initial comments: 38-year-old female presenting with chief complaint of abdominal and vaginal discomfort. Patient started having vaginal discharge and discomfort about a week ago. She has been on a course of several doses of fluconazole as symptoms have not resolved. Now she is having cramping in the abdomen as well. History of a partial hysterectomy 7 months ago. No fevers. No nausea or vomiting. No diarrhea or hematochezia. (Robbie Michaud) - Related Data Previous Rx's Medication Instructions Recorded Hydrocortisone Cream 1 applic TOPICAL TID #28 gm 11/01/21 [Hydrocortisone 1% Cream] valACYclovir HCL [Valacyclovir] 1,000 mg PO DAILY #5 tab 11/01/21 metroNIDAZOLE [Flagyl] 500 mg PO BID 7 Days #14 tab 11/24/21 predniSONE [Deltasone] 40 mg PO DAILY #8 tab 01/10/22 metroNIDAZOLE [Flagyl] 500 mg PO BID 7 Days #14 tab 03/24/22 Fluconazole [Diflucan] 200 mg PO ONCE #1 tablet 09/10/23 metroNIDAZOLE 500 mg PO BID #14 tablet 01/09/24 Allergies Allergy/AdvReac Type Severity Reaction Status Date / Time amoxicillin Allergy Unknown Verified 01/09/24 02:34 Latex, Natural Rubber Allergy Rash/Hives Verified 01/09/24 02:34 Review of Systems ROS Other: All systems not noted in ROS Statement are negative. <Robbie Michaud - Last Filed: 01/09/24 02:58> ROS Other: All systems not noted in ROS Statement are negative. <Nitin Doyle - Last Filed: 01/09/24 05:18> ROS Statement: Those systems with pertinent positive or pertinent negative responses have been documented in the HPI. Past Medical History Additional Past Medical History / Comment(s): ovarian cyst, endometriosis History of Any Multi-Drug Resistant Organisms: None Reported Past Surgical History: Hysterectomy Additional Past Surgical History / Comment(s): laproscopy Past Psychological History: No Psychological Hx Reported Smoking Status: Never smoker Past Alcohol Use History: Rare Past Drug Use History: None Reported <Robbie Michaud - Last Filed: 01/09/24 02:58> General Exam Limitations: no limitations <Robbie Michaud - Last Filed: 01/09/24 02:58> - General Exam Comments Initial Comments: Visual Physical Exam Vital signs reviewed General: Well-appearing, nontoxic, no acute distress. Head: Normocephalic, atraumatic Eyes: PERRLA, EOMI ENT: Airway patent Chest: Nonlabored breathing Skin: No visual rash, normal skin tone Neuro: Alert and oriented 3 Musculoskeletal: No gross abnormalities (Robbie Michaud) Course Vital Signs 01/09/24 02:32 Temperature 97.9 F Pulse Rate 97 Respiratory 18 Rate Blood Pressure 113/80 O2 Sat by Pulse 99 Oximetry Medical Decision Making <Robbie Michaud - Last Filed: 01/09/24 02:58> - Medical Decision Making I performed the quick note portion of this visit, electronically signed Robbie Michaud PA-C (Robbie Michaud) - Lab Data Lab Results 01/09/24 01/09/24 Range/Units 02:40 02:40 Urine Color Colorless Urine Appearance Clear (Clear) Urine pH 6.0 (5.0-8.0) Ur Specific [place] 1.021 (1.001-1.035) Urine Protein Negative (Negative) Urine Glucose (UA) Negative (Negative) Urine Ketones 1+ H (Negative) Urine Blood Trace H (Negative) Urine Nitrite Negative (Negative) Urine Bilirubin Negative (Negative) Urine Urobilinogen <2.0 (<2.0) mg/dL Ur Leukocyte Esterase Trace H (Negative) Urine RBC 3 (0-5) /hpf Urine WBC 4 (0-5) /hpf Ur Squamous Epith Cells 2 (0-4) /hpf Hyaline Casts 1 (0-2) /lpf Urine Mucus Few H (None) /hpf Urine HCG, Qual Not Detected (Not Detectd) Disposition <Robbie Michaud - Last Filed: 01/09/24 02:58> Is patient prescribed a controlled substance at d/c from ED?: No <Nitin Doyle - Last Filed: 01/09/24 05:18> Clinical Impression: Bacterial vaginosis Disposition: HOME SELF-CARE Condition: Good Instructions (If sedation given, give patient instructions): Bacterial Vaginosis (ED) Prescriptions: metroNIDAZOLE 500 mg PO BID #14 tablet Referrals: Cristofer Griffiths DO [Primary Care Provider] - 1-2 days Vitaly Granados DO [REFERRING] - 1-2 days
[2024-01-09 03:11] LABS: Appearance,Urine Clear (Clear); Bilirubin,Urine Negative (Negative); Blood,Urine Trace (Negative); Color,Urine Colorless; Glucose,Urine (UA) Negative (Negative); Hyaline Casts,Urine 1 /lpf (0-2); Ketones,Urine 1+ (Negative); Leukocyte Esterase,Urine Trace (Negative); Mucus,Urine Few /hpf; Nitrite,Urine Negative (Negative); Protein,Urine Negative (Negative); RBC,Urine 3 /hpf (0-5); Specific Gravity,Urine 1.021 (1.001-1.035); Squamous Epithelial Cell,Urine 2 /hpf (0-4); Urobilinogen,Urine <2.0 mg/dL (<2.0); WBC,Urine 4 /hpf (0-5)
--- NOTE | 2024-01-09 04:01 | XR ---
EXAM: XR Abdomen, 1 View CLINICAL HISTORY: ITS.REASON XR Reason: pain TECHNIQUE: Frontal supine view of the abdomen/pelvis. COMPARISON: No relevant prior studies available. FINDINGS: Gastrointestinal tract: Mild fecal retention, correlate for constipation. Nonobstructed bowel gas pattern. Bones/joints: Unremarkable. No acute fracture. IMPRESSION: 1. Mild fecal retention, correlate for constipation. 2. Nonobstructed bowel gas pattern.
[2024-01-09] MEDS: MAGNESIUM CITRATE 296 ML BOTTLE PO ONE (06:02)
[2024-01-10 13:37] LABS: C. trachomatis,PCR Negative (Negative); N. gonorrhoeae,PCR Negative (Negative)
== END 2024-01-09 06:03 | disposition home or self-care (01) ==
LOC: EC 02:27
CPT/HCPCS: 74018; 81001; 81025; 87070; 87491; 87591; 99284